=== PATIENT | male | born 1995 | race Caucasian/White ===

== ENCOUNTER 2019-07-24 14:09 | Emergency (ER) | payer BC, OTHER ==
[~2019-07-24 14:09] MED LIST: Sodium Chloride Irrig Solution 250 ML BOT ONE
[2019-07-24] MEDS ORDERED: Lidocaine-Prilocaine 2.5% Cream 5 GM TUBE ONE (14:25)
== END 2019-07-24 15:06 | disposition home or self-care (01) ==
LOC: MADERS 14:09
DX: S01.81XA Laceration without foreign body of other part of head, initial encounter (principal); F17.220 Nicotine dependence, chewing tobacco, uncomplicated; W22.8XXA Striking against or struck by other objects, initial encounter
CPT/HCPCS: 12011

== ENCOUNTER 2019-12-26 22:45 | Emergency (ER) | payer BC ==
--- NOTE | 2019-12-26 23:16 | RAD ---
Left foot:3 views INDICATION:Injury with pain COMPARISON:None FINDINGS: Tarsals appear intact. Metatarsals appear intact. Phalanges appear intact. Tarsal metatarsal joints, MTP joints, and IP joints appear unremarkable. Soft tissues unremarkable. IMPRESSION: No acute finding
--- NOTE | 2019-12-26 23:33 | RAD ---
Left ankle: 3 VIEWS INDICATION:Injury and pain COMPARISON:None FINDINGS: Mild soft tissue swelling. No evidence of fracture. No osseous abnormality identified. IMPRESSION: No evidence of fracture
== END 2019-12-26 23:46 | disposition home or self-care (01) ==
LOC: MADERS 22:45
DX: S93.402A Sprain of unspecified ligament of left ankle, initial encounter (principal); S90.32XA Contusion of left foot, initial encounter; F17.210 Nicotine dependence, cigarettes, uncomplicated; F17.220 Nicotine dependence, chewing tobacco, uncomplicated; V89.2XXA Person injured in unspecified motor-vehicle accident, traffic, initial encounter